=== PATIENT | male | born 1970 | race Two or more races ===

== ENCOUNTER 2019-01-15 10:22 | Inpatient (IN) | payer SELFPAY ==
[~2019-01-15] VITALS: Ht 162.6 cm; Wt 68.0 kg
[2019-01-15 10:33] VITALS: BP 124/79
--- NOTE | 2019-01-15 10:43 | NUR ---
ED Nurse Note: PT WALKED IN DUE TO GENITAL PAIN SINCE LAST NIGHT. PT ALSO C/O THAT HE FEELS MUSIC ALL OVER HIS BODY AND THAT THERE WAS A SPIRIT IN HIS ROOM LAST NIGHT. [facility] X4, AMBULATORY WITH UNLABORED BREATHING. Addendum: 01/15/19 at 1106 by YURI ED Nurse Note: PT WALKED IN DUE TO GENITAL PAIN SINCE LAST NIGHT. PT ALSO C/O THAT HE FEELS MUSIC ALL OVER HIS BODY AND THAT THERE WAS A SPIRIT IN HIS ROOM LAST NIGHT. [facility] X4, AMBULATORY WITH UNLABORED BREATHING.
[2019-01-15] MEDS ORDERED: NKM (10:45)
[2019-01-15] MEDS ORDERED: ZyPREXA Zydis 10mg tab ORAL ONE (11:15)
--- NOTE | 2019-01-15 11:38 | Emergency Room Report ---
History of Present Illness General Chief Complaint: Male Urogenital Problems Source: Patient, Friend Present Illness HPI This patient is altered. The patient is confabulating and hallucinating. He is speaking normal words but not in a sensible order. He is unable to make a complete sentence. He has no specific complaint. He is brought in by his friend who states that he had went to [place] and came home yesterday and called him and had been acting this way ever since. He has no history of drug abuse or a psychiatric condition. The friend of the patient states he is hallucinating and is not making sense. There is been no recent illness. He is unsure if he used drugs in [place]. He did not accompany him. He states normally he has a normal mental status. Allergies: Uncoded Allergies: PENICILLIN (Allergy, Unknown, 01/15/19) Patient History Past Medical History: unable to obtain Past Surgical History: unable to obtain Pertinent Family History: unable to obtain Reviewed Nursing Documentation: PMH: Agreed; PSxH: Agreed Nursing Documentation-PMH Past Medical History: No Stated History Review of Systems All Other Systems: limited Physical Exam Vital Signs Date Time Temp Pulse Resp B/P (MAP) Pulse Ox O2 Delivery O2 Flow Rate FiO2 01/15/19 10:33 98.4 118 20 124/79 (94) 96 Room Air Sp02 EP Interpretation: reviewed, normal General Appearance: no apparent distress, alert, GCS 15, non-toxic Head: normocephalic, atraumatic Eyes: bilateral eye normal inspection, bilateral eye PERRL ENT: hearing grossly normal, normal pharynx, no angioedema, normal voice Neck: full range of motion, supple/symm/no masses Respiratory: chest non-tender, lungs clear, normal breath sounds, no respiratory distress, no retraction, no accessory muscle use, speaking full sentences Cardiovascular #1: regular rate, rhythm, no edema Gastrointestinal: normal bowel sounds, non tender, soft, non-distended, no guarding, no rebound Rectal: deferred Musculoskeletal: back normal, gait/station normal, normal range of motion Neurologic: alert, responsive, motor strength/tone normal, sensory intact, speech normal, grossly normal Psychiatric: mood/affect normal, no suicidal/homicidal ideation, other - Psychosis, non-sensical. Skin: normal color, no rash, warm/dry, well hydrated Medical Decision Making Diagnostic Impression: Primary Impression: Hepatic encephalopathy Additional Impressions: Hypokalemia Wernicke encephalopathy ER Course I suspect this patient has liver cirrhosis and possibly Warnicke encephalopathy. I suspect he is altered secondary to an elevated ammonia and has hepatic encephalopathy. Labs did show hypokalemia and an elevated ammonia. CT of the head was unremarkable. This patient will be admitted for further evaluation of his altered mental status/encephalopathy. Laboratory Tests Test 01/15/19 11:15 01/15/19 11:47 White Blood Count 9.8 K/UL (4.8-10.8) Red Blood Count 4.73 M/UL (4.70-6.10) Hemoglobin 14.9 G/DL (14.2-18.0) Hematocrit 42.0 % (42.0-52.0) Mean Corpuscular Volume 89 FL (80-99) Mean Corpuscular Hemoglobin 31.4 PG (27.0-31.0) H Mean Corpuscular Hemoglobin Concent 35.4 G/DL (32.0-36.0) Red Cell Distribution Width 11.5 % (11.6-14.8) L Platelet Count 332 K/UL (150-450) Mean Platelet Volume 6.0 FL (6.5-10.1) L Neutrophils (%) (Auto) 63.7 % (45.0-75.0) Lymphocytes (%) (Auto) 24.0 % (20.0-45.0) Monocytes (%) (Auto) 10.9 % (1.0-10.0) H Eosinophils (%) (Auto) 0.4 % (0.0-3.0) Basophils (%) (Auto) 0.9 % (0.0-2.0) Urine Color Yellow Urine Appearance Clear Urine pH 6.5 (4.5-8.0) Urine Specific [place] 1.010 (1.005-1.035) Urine Protein 2+ (NEGATIVE) H Urine Glucose (UA) Negative (NEGATIVE) Urine Ketones 1+ (NEGATIVE) H Urine Blood 1+ (NEGATIVE) H Urine Nitrite Negative (NEGATIVE) Urine Bilirubin 1+ (NEGATIVE) H Urine Ictotest Negative (NEGATIVE) Urine Urobilinogen 4 MG/DL (0.0-1.0) H Urine Leukocyte Esterase 1+ (NEGATIVE) H Urine RBC 0-2 /HPF (0 - 0) H Urine WBC 0-2 /HPF (0 - 0) Urine Squamous Epithelial Cells Occasional /LPF Urine Amorphous Sediment Few /LPF (NONE) H Urine Bacteria Occasional /HPF (NONE) Urine Mucus Few /LPF (NONE/OCC) H Sodium Level 133 MMOL/L (136-145) L Potassium Level 2.9 MMOL/L (3.5-5.1) L Chloride Level 94 MMOL/L (98-107) L Carbon Dioxide Level 28 MMOL/L (21-32) Anion Gap 11 mmol/L (5-15) Blood Urea Nitrogen 21 mg/dL (7-18) H Creatinine 0.8 MG/DL (0.55-1.30) Estimate Glomerular Filtration Rate > 60 mL/min (>60) Glucose Level 139 MG/DL (74-106) H Calcium Level 9.4 MG/DL (8.5-10.1) Total Bilirubin 0.9 MG/DL (0.2-1.0) Aspartate Amino Transferase (AST) 165 U/L (15-37) H Alanine Aminotransferase (ALT) 216 U/L (12-78) H Alkaline Phosphatase 88 U/L (46-116) Total Protein 8.2 G/DL (6.4-8.2) Albumin 4.0 G/DL (3.4-5.0) Globulin 4.2 g/dL Albumin/Globulin Ratio 1.0 (1.0-2.7) Thyroid Stimulating Hormone (TSH) 3.612 uiU/mL (0.358-3.740) Salicylates Level < 0.2 ug/mL (2.8-20) L Urine Opiates Screen Negative (NEGATIVE) Acetaminophen Level < 2 MCG/ML (10-30) L Urine Barbiturates Screen Negative (NEGATIVE) Phencyclidine (PCP) Screen Negative (NEGATIVE) Urine Amphetamines Screen Negative (NEGATIVE) Urine Benzodiazepines Screen Negative (NEGATIVE) Urine Cocaine Screen Negative (NEGATIVE) Urine Marijuana (THC) Screen Negative (NEGATIVE) Serum Alcohol < 3 mg/dL Ammonia 38 umol/L (11-32) H EKG Diagnostic Results Rate: tachycardiac Rhythm: other - S.tachycardia ST Segments: no acute changes Other Impression Qwave lead III. Rhythm Strip Diag. 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
[2019-01-15 12:07] LABS: APPEARANCE,URINE CLEAR; BILIRUBIN, URINE 1+ (NEGATIVE); GLUCOSE, URINE (UA) NEGATIVE (NEGATIVE); KETONES,URINE 1+ (NEGATIVE); LEUKOCYTE ESTERASE ,URINE 1+ (NEGATIVE); NITRITE,URINE NEGATIVE (NEGATIVE); PH,URINE 6.5 (4.5-8.0); PROTEIN,URINE 2+ (NEGATIVE); UROBILINOGEN,URINE 4 MG/DL (0.0-1.0)
[2019-01-15 12:08] LABS: BASOPHILS % (AUTO) 0.9 % (0.0-2.0); EOSINOPHILS % (AUTO) 0.4 % (0.0-3.0); HEMOGLOBIN 14.9 G/DL (14.2-18.0); MEAN CORPUSCULAR VOLUME 89 FL (80-99); MONOCYTES % (AUTO) 10.9 % (1.0-10.0); NEUTROPHILS % (AUTO) 63.7 % (45.0-75.0); PLATELET COUNT 332 K/UL (150-450); RED BLOOD COUNT 4.73 M/UL (4.70-6.10); RED CELL DISTRIBUTION WIDTH 11.5 % (11.6-14.8); WHITE BLOOD COUNT 9.8 K/UL (4.8-10.8)
[2019-01-15 12:09] LABS: ANION GAP 11 mmol/L (5-15); BLOOD UREA NITROGEN 21 mg/dL (7-18); CALCIUM 9.4 MG/DL (8.5-10.1); CARBON DIOXIDE 28 MMOL/L (21-32); CHLORIDE 94 MMOL/L (98-107); CREATININE 0.8 MG/DL (0.55-1.30); POTASSIUM 2.9 MMOL/L (3.5-5.1); SODIUM 133 MMOL/L (136-145)
[2019-01-15 12:14] LABS: COLOR,URINE YELLOW
[2019-01-15 12:21] LABS: ALANINE AMINOTRANSFERASE 216 U/L (12-78); ALKALINE PHOSPHATASE 88 U/L (46-116); ASPARTATE AMINO TRANSFERASE 165 U/L (15-37); BILIRUBIN,TOTAL 0.9 MG/DL (0.2-1.0)
[2019-01-15 12:35] VITALS: BP 135/76
--- NOTE | 2019-01-15 13:37 | Diagnostic Imaging Report ---
Indications: Altered mental status Technique: Spiral acquisitions obtained through the brain. Angled axial and coronal 5 x 5 mm slices were reconstructed. Total dose length product 1375.61 mGycm. CTDI vol(s) 70.38 mGy. Dose reduction achieved using automated exposure control Comparison: None. Findings: There is a parenchymal calcification in the right posterior temporal lobe. No acute intracranial hemorrhage nor edema. No mass effect nor midline shift. Normal pizano-white differentiation. Normal-sized ventricles and extra axial CSF spaces. There is evidence of prior mastoid surgery on the left. There is some mastoid opacification on the left. The orbits are unremarkable. The sinuses are clear. 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
--- NOTE | 2019-01-15 14:36 | NUR ---
ED Nurse Note: PT IS STILL HALLUCINATING AND STATES THAT HE IS SEEING THE THINGS THAT MAKE MUSIC. FRIEND AT THE BED SIDE.
[2019-01-15 14:40] VITALS: BP 128/80
[2019-01-15] MEDS ORDERED: Lactulose 20gm/30ml UDC ORAL ONE (14:45)
[2019-01-15] MEDS ORDERED: Thiamine HCl 500 MG in D5W 55 ML IVPB ONE (15:15)
--- NOTE | 2019-01-15 15:20 | NUR ---
ED Nurse Note: CALLED PHARMACY TO RESTOCK THIAMINE.
--- NOTE | 2019-01-15 15:20 | NUR ---
ED Nurse Note: DR COLLETTE KU FOR PT TO EAT/DRINK. RAMY PROVIDED SANDWICH AND WATER.
--- NOTE | 2019-01-15 16:17 | NUR ---
ED Nurse Note: REPORT GIVEN TO CIERA PANDA OF MED SURG UNIT.
--- NOTE | 2019-01-15 16:18 | NUR ---
ED Nurse Note: CIERA PANDA FROM MED SURG SAID TO COME UP AFTER 30MINS.
[2019-01-15 16:27] VITALS: BP 117/83
--- NOTE | 2019-01-15 16:30 | NUR ---
NURSE NOTES: PATIENT RECEIVED FROM ER DEPT. VIA . FAMILY FRIEND AND ANCILLARY WORKER AT BEDSIDE. PATIENT ABLE TO TRANSFER SELF TO BED. ORIENTED TO ROOM. CALL LIGHT WITHIN REACH.BED IN LOWEST AND LOCKED POSITION. PLACED CALL TO BASILIO TO GET ADMITTING ORDERS. LEFT MESSAGE WITH PHONE EXCHANGE. AWAITING RETURN CALL.
--- NOTE | 2019-01-15 16:32 | NUR ---
ED Nurse Note: PT TRANSFERRED TO MED SURG UNTI VIA WHEELCHAIR WITH DENSITY CONTROL PUNCHER. VSS. ALL BEONGINGS SENT.
--- NOTE | 2019-01-15 18:51 | NUR ---
CHARGE NURSE NOTES: Left message to Dr Coy reg the admission orders
--- NOTE | 2019-01-15 19:30 | NUR ---
HAND-OFF: Report given to ONI COLEMAN RN.
--- NOTE | 2019-01-15 19:31 | NUR ---
NURSE NOTES: Received report & pt from AMARILYS Webb. Pt lying in bed, a&ox4, [place] speaking only, in room air. No s/s of acute distress & no c/o pain at this time. IV site intact & S/L'd. No admission orderes yet, AM shift already called Dr. Coy & left msg. Will call Dr. Coy to f/u with admission orders again. Per AM shift, pt tachycardic ranging from 118-130s. Bed in lowest position, call light within reach. Will continue to monitor.
[2019-01-15 20:00] VITALS: BP 108/74
--- NOTE | 2019-01-15 20:00 | NUR ---
NURSE NOTES: Called & let msg to Dr. Coy to f/u with admission orders. Also informed MD that current HR is 114.
--- NOTE | 2019-01-15 20:55 | NUR ---
NURSE NOTES: Dr. Coy called back & gave admission orders. Orders noted & carried out.
[2019-01-16] VITALS: BP 114/70
[2019-01-16 04:00] VITALS: BP 114/75
--- NOTE | 2019-01-16 07:32 | NUR ---
HAND-OFF: Report given to AMARILYS Pineda. Pt in stable condition. Rounds done.
--- NOTE | 2019-01-16 07:32 | NUR ---
NURSE NOTES:BEDSIDE ROUNDS WITH ONI RN.PATIENT SITTING AT THE SIDE OF THE BED EATING BREAKFAST,A/O X2,ROOM AIR,EXTREMITIES MOBILE,NO C/O PAIN.
[2019-01-16 08:00] VITALS: BP_SYST 107; BP_SYST 90; BP_DIAS 63; BP_DIAS 65
[2019-01-16 12:00] VITALS: BP 105/70
--- NOTE | 2019-01-16 13:40 | NUR ---
NURSE NOTES: Report received from Miriam RN, rounds made. Patient resting in supine position in bed. Alert, oriented x2. Denies SOB on RA, no pain, no NV. RAC heplock intact, site asymptomatic. Family at bedside. Call light in reach, bed in lowest position, will continue to monitor.
--- NOTE | 2019-01-16 13:53 | NUR ---
HAND-OFF: Report given to DANIELA PANDA.RE:CONTINUITY OF CARE.PATIENT STABLE ON REPORT.
--- NOTE | 2019-01-16 15:43 | NUR ---
CASE MANAGEMENT: INITIAL REVIEW 48 YO M PRESENTED TO OUR ED FROM HOME CC: MALE UROGENITAL PROBLEMS PMHx: NONE STATED SI:HEPATIC ENCEPHALOPATHY. T 98.4 HR 118 RR 20 B/P 124/79 SATS 96% ON RA NA 133 K 2.9 CL 94 BUN 21 GLU 139 AST 165 ALT 216 AMMONIA 38 IS: ZYPREXA PO X1 LACTULOSE PO X1 CT HEAD (-) PATIENT ADMITTED TO MED/SURG 01/15/2019 @ 1500 DCP: PATIENT TO BE DISCHARGED TO HOME ONCE MEDICALLY CLEARED. Addendum: 01/16/19 at 1804 by Deana Dunbar CM INTERQUAL
[2019-01-16 16:00] VITALS: BP 106/76
[2019-01-16] MEDS ORDERED: LACTULOSE20 GM/301 ORAL (17:16)
--- NOTE | 2019-01-16 18:35 | NUR ---
NURSE NOTES: Discharge instructions and prescription x1 reviewed with patient, verbalized understanding. RAC IV discontinued, no active bleeding. All belongings, discharge instructions and prescription given to patient. Patient ambulated down to lobby with family in stable condition. Discharged home at 1835.
--- NOTE | 2019-01-16 19:38 | Cardiology Report ---
APPROVED REPORT EKG Measurement Heart [id number] MA 124P0 [id number] Sinus tachycardia Inferior infarct, age undetermined Abnormal ECG
--- NOTE | 2019-01-16 22:01 | History and Physical Report ---
DATE OF ADMISSION: 01/15/2019 HISTORY OF PRESENT ILLNESS: This is a 48-year-old male who came to the emergency room for altered mental status, weakness, hepatic encephalopathy. PAST MEDICAL HISTORY: Alcohol abuse. ALLERGIES: NKA. MEDICATIONS: See the list. PHYSICAL EXAMINATION: GENERAL: This is a young male who is currently confused. VITAL SIGNS: Blood pressure 106/76, pulse 111, temperature 98.3. HEENT: NAD. CHEST: Bilaterally clear. CARDIOVASCULAR: Regular rhythm. No gallop. No murmur. ABDOMEN: Soft. EXTREMITIES: CCE. NEUROLOGICAL: The patient is lying in the bed, generalized weakness. LABORATORY AND DIAGNOSTIC DATA: White count 9.8, hemoglobin 15, hematocrit 42. Chemistry panel, ammonia level was 38. Sodium 133, potassium 2.9, BUN 21, creatinine 0.8, glucose, AST, and ALT is high. TSH 3.612. His urine 1+ ketones, 1+ blood. Toxicology report is showing as negative. ASSESSMENT: 1. Hepatic encephalopathy. 2. Generalized weakness. 3. Hypokalemia. PLAN: 1. We will admit on medical floor. 2. . 3. I will discontinue Tylenol, continue banana bag. 4. Consider GI consult. Jamey Coy M.D. DR: Fidencio JOB#: [id number] CC:
--- NOTE | 2019-01-20 11:28 | Discharge Summary ---
Discharge Summary Discharge Summary _ DATE OF ADMISSION: 01/15/2019 DATE OF DISCHARGE: 01/16/2019 DISCHARGED BY: Dr. Coy REASON FOR ADMISSION: 48 years old male presented to emergency room with altered mental status Upon evaluation patient was slightly tachycardic. Laboratory work-up revealed no leukocytosis, stable hemoglobin and hematocrit. Potassium 2.9. Glucose 139. AST 165. ALT 216. TSH within normal limits. Urine toxicology screen was negative. Serum salicylates and alcohol levels negative. Ammonia- 38. EKG revealed sinus tachycardia, no acute ischemic changes. CT of the head revealed no evidence of acute intracranial bleeding or mass- effect. Right posterior temporal parenchymal calcification consistent with cysticercosis. Patient was diagnosed with hepatic encephalopathy, hypokalemia, and admitted for further management. HOSPITAL COURSE: Patient admitted to medical surgical floor. Patient started on the IV fluids with thiamine and folic acid. Potassium was replaced. Lactulose given. GI prophylaxis provided. Tylenol stopped due to elevated LFT. Mental status improved. Patient was cleared for discharge home. Outpatient follow-up with primary care provider Due to rapid and unexpected improvement patient condition, patient was discharged in 1 day. FINAL DIAGNOSES: Hepatic encephalopathy Generalized weakness Hypokalemia DISCHARGE MEDICATIONS: See Medication Reconciliation list. DISCHARGE INSTRUCTIONS: Patient was discharged home. Follow up with primary care provider in one week. I have been assigned to dictate discharge summary for this account. I was not involved in the patient's management. Malka Quezada NP Jan 20, 2019 11:28
== END 2019-01-16 18:40 | disposition home or self-care (01) | DRG 443 ==
LOC: EMR 11:05 → 3E 15:00 → EDBEDREQ 15:56
DX: K72.90 Hepatic failure, unspecified without coma (principal); R53.1 Weakness; E87.6 Hypokalemia; Z88.0 Allergy status to penicillin
CPT/HCPCS: 36415; 70450; 80053; 80307; 80329; 81003; 82140; 84443; 85025; 93005; 96365; 99285; J8499

== ENCOUNTER 2020-01-08 17:16 | Inpatient (IN) | payer MEDICAID ==
[~2020-01-08] VITALS: Ht 172.7 cm; Wt 77.1 kg
[~2020-01-08 17:16] MED LIST: LACTULOSE20 GM/301 ORAL; NKM
--- NOTE | 2020-01-08 17:21 | Emergency Room Report ---
History of Present Illness General Chief Complaint: Alcohol Intoxication Source: Patient, EMS Present Illness HPI Is a 49-year-old male past medical history of alcohol abuse who is brought in by EMS for alcohol abuse. Patient's family called EMS because patient has been drinking daily and they are concerned about his nutritional status because he drinks more than he eats. Patient admits to drinking 12 beers a day as well as drinking tequila. He states his last drink was earlier this morning where he drank some tequila. He feels anxious and has palpitations. He states that he feels a little shaky. He denies any seizure-like activity. Patient also states that he fell yesterday. He states that he fell because he was drinking and hit his head. Patient denies any chest pain or shortness of breath. He denies any focal weakness. Allergies: Coded Allergies: PENICILLINS (Unverified Allergy, Unknown, 01/08/20) Uncoded Allergies: PENICILLIN (Allergy, Unknown, 01/15/19) COVID-19 Screening Contact w/high risk pt: No Recent Travel to affected area: No Experienced COVID-19 symptoms?: No COVID-19 Testing performed MANAGER BIOSTATISTICS: No Patient History Social History: Reports: alcohol use; Denies: smoking, drug use Reviewed Nursing Documentation: PMH: Agreed; PSxH: Agreed Nursing Documentation-PMH Past Medical History: No Stated History Review of Systems All Other Systems: negative except mentioned in HPI Physical Exam Vital Signs Date Time Temp Pulse Resp B/P (MAP) Pulse Ox O2 Delivery O2 Flow Rate FiO2 01/08/20 17:13 98.1 120 20 127/73 (91) 99 Room Air Sp02 EP Interpretation: reviewed, normal General Appearance: no apparent distress, alert, GCS 15, non-toxic Head: normocephalic, atraumatic Eyes: bilateral eye normal inspection, bilateral eye PERRL ENT: hearing grossly normal, normal pharynx, no angioedema, normal voice, dry mucus membranes Neck: full range of motion, supple/symm/no masses Respiratory: chest non-tender, lungs clear, normal breath sounds, speaking full sentences Cardiovascular #1: tachycardia Cardiovascular #2: 2+ carotid (R), 2+ carotid (L) Gastrointestinal: normal bowel sounds, non tender, soft, non-distended, no guarding, no rebound Rectal: deferred Genitourinary: no CVA tenderness Musculoskeletal: normal inspection, normal range of motion Neurologic: camera storage clerk III-XII nml as tested, oriented x3, other - faint tremors Psychiatric: no suicidal/homicidal ideation Skin: no rash Lymphatic: no adenopathy Medical Decision Making Diagnostic Impression: Primary Impression: Alcoholic ketoacidosis Additional Impressions: Hypokalemia Alcohol withdrawal ER Course Patient presents with alcohol withdrawal. He is tachycardic and hypertensive he is not altered. No evidence for DTs. Patient given IV fluids, banana bag and 2 doses of IV Ativan. His heart rate is improving currently at 6:46 PM his heart rate is 105 bpm. Patient also found to be hypokalemic with a potassium of 3.0. I have ordered for 10 mEq of IV potassium as well as 40 mEq of oral potassium chloride. Patient has anion gap of 18 and CO2 of 20. Alcoholic ketoacidosis. Patient to be admitted for further treatment and evaluation. Laboratory Tests Test 01/08/20 17:20 01/08/20 18:29 White Blood Count 6.9 K/UL (4.8-10.8) Red Blood Count 5.34 M/UL (4.70-6.10) Hemoglobin 16.8 G/DL (14.2-18.0) Hematocrit 51.3 % (42.0-52.0) Mean Corpuscular Volume 96 FL (80-99) Mean Corpuscular Hemoglobin 31.5 PG (27.0-31.0) H Mean Corpuscular Hemoglobin Concent 32.9 G/DL (32.0-36.0) Red Cell Distribution Width 13.3 % (11.6-14.8) Platelet Count 510 K/UL (150-450) H Mean Platelet Volume 5.7 FL (6.5-10.1) L Neutrophils (%) (Auto) 49.4 % (45.0-75.0) Lymphocytes (%) (Auto) 41.6 % (20.0-45.0) Monocytes (%) (Auto) 5.5 % (1.0-10.0) Eosinophils (%) (Auto) 2.4 % (0.0-3.0) Basophils (%) (Auto) 1.2 % (0.0-2.0) Prothrombin Time 10.7 SEC (9.30-11.50) Prothrombin Time INR 1.0 (0.9-1.1) Activated Partial Thromboplast Time 27 SEC (23-33) Sodium Level 140 MMOL/L (136-145) Potassium Level 3.0 MMOL/L (3.5-5.1) L Chloride Level 102 MMOL/L (98-107) Carbon Dioxide Level 20 MMOL/L (21-32) L Anion Gap 18 mmol/L (5-15) H Blood Urea Nitrogen 6 mg/dL (7-18) L Creatinine 0.9 MG/DL (0.55-1.30) Estimated Glomerular Filtration Rate > 60 mL/min (>60) Glucose Level 131 MG/DL (74-106) H Calcium Level 8.1 MG/DL (8.5-10.1) L Magnesium Level 2.0 MG/DL (1.8-2.4) Total Bilirubin 0.2 MG/DL (0.2-1.0) Aspartate Amino Transferase (AST) 38 U/L (15-37) H Alanine Aminotransferase (ALT) 56 U/L (12-78) Alkaline Phosphatase 61 U/L (46-116) Troponin I 0.002 ng/mL (0.000-0.056) Total Protein 8.0 G/DL (6.4-8.2) Albumin 3.5 G/DL (3.4-5.0) Globulin 4.5 g/dL Albumin/Globulin Ratio 0.8 (1.0-2.7) L Lipase 138 U/L (73-393) Venous Blood pH Pending Venous Blood Partial Pressure CO2 Pending Venous Blood Partial Pressure O2 Pending Venous Blood HCO3 Pending Venous Blood Total Carbon Dioxide Pending Venous Blood Base Excess Pending Venous Blood Carboxyhemoglobin Pending Methemoglobin Pending EKG Diagnostic Results EKG Time: 18:15 EP Interpretation: Sara Carbajal MD Rate: tachycardiac Rhythm: other - sinus tachycardia ST Segments: no acute changes ASA given to the pt in ED: No Rhythm Strip Diag. Results Rhythm Strip Time: 18:15 EP Interpretation: yes - MD Raven Rate: 111 Rhythm: no PVC's, no ectopy, other - sinus tachycardia Other X-Ray Diagnostic Results Other X-Ray Diagnostic Results : X-Ray ordered: x-ray abdomen # of Views/Limited Vs Complete: 2 View Indication: Other - alcohol abuse EP Interpretation: Yes Interpretation: no soft tissue swelling, nonspecific bowel gas, no sbo Impression: No acute disease Electronically Signed by: Sara Carbajal MD Last Vital Signs Date Time Temp Pulse Resp B/P (MAP) Pulse Ox O2 Delivery O2 Flow Rate FiO2 01/08/20 17:13 98.1 120 20 127/73 (91) 99 Room Air Disposition: ADMITTED INPATIENT Condition: Critical - telemetry Physician Consult: Sara Kaplan M.D. Jan 08, 2020 17:21
[2020-01-08] MEDS ORDERED: LORazepam Inj 2mg/ml 1ml IV ONE ×2 (17:30→18:30)
[2020-01-08] MEDS ORDERED: Folic Acid 1 MG, Magnesium Sulfate 2,000 MG, Multivitamin - 12 Injection 10 ML, Thiamin... IV ONE ×5 (17:30)
[2020-01-08 17:35] VITALS: BP 124/74
--- NOTE | 2020-01-08 17:35 | NUR ---
ED Nurse Note: Pt brought in by ambulance from home d/t ETOH use and feeling anxious. Per pt, he drank a bottle of tequila this morning. Respirations even and unlabored on room air. Vitals stable as documented. A+Ox4, calm and cooperative.
--- NOTE | 2020-01-08 17:40 | NUR ---
ED Nurse Note: pt in radiology
[2020-01-08 17:50] LABS: BASOPHILS % (AUTO) 1.2 % (0.0-2.0); EOSINOPHILS % (AUTO) 2.4 % (0.0-3.0); HEMATOCRIT 51.3 % (42.0-52.0); HEMOGLOBIN 16.8 G/DL (14.2-18.0); LYMPHOCYTES % (AUTO) 41.6 % (20.0-45.0); MEAN CORPUSCULAR VOLUME 96 FL (80-99); MONOCYTES % (AUTO) 5.5 % (1.0-10.0); NEUTROPHILS % (AUTO) 49.4 % (45.0-75.0); PLATELET COUNT 510 K/UL (150-450); RED BLOOD COUNT 5.34 M/UL (4.70-6.10); RED CELL DISTRIBUTION WIDTH 13.3 % (11.6-14.8); WHITE BLOOD COUNT 6.9 K/UL (4.8-10.8)
[2020-01-08 18:00] LABS: ANION GAP 18 mmol/L (5-15); BLOOD UREA NITROGEN 6 mg/dL (7-18); CALCIUM 8.1 MG/DL (8.5-10.1); CARBON DIOXIDE 20 MMOL/L (21-32); CHLORIDE 102 MMOL/L (98-107); CREATININE 0.9 MG/DL (0.55-1.30); SODIUM 140 MMOL/L (136-145)
[2020-01-08] MEDS ORDERED: Folic Acid 1 MG, Magnesium Sulfate 2,000 MG, Multivitamin - 12 Injection 10 ML in Sodiu... IV ONE (18:00)
[2020-01-08] MEDS ORDERED: Thiamine 100mg in D5W 55ml IVPB ONE (18:00)
[2020-01-08 18:04] LABS: ALANINE AMINOTRANSFERASE 56 U/L (12-78); ALBUMIN 3.5 G/DL (3.4-5.0); ALBUMIN/GLOBULIN RATIO 0.8 (1.0-2.7); ALKALINE PHOSPHATASE 61 U/L (46-116); ASPARTATE AMINO TRANSFERASE 38 U/L (15-37); BILIRUBIN,TOTAL 0.2 MG/DL (0.2-1.0)
--- NOTE | 2020-01-08 18:07 | NUR ---
ED Nurse Note: pt back from radiology and on the monitor. ST @ 112
--- NOTE | 2020-01-08 19:06 | NUR ---
HAND-OFF: Report given to AMARILYS Green. Pt in stable condition, plan of care endorsed.
[2020-01-08 19:12] VITALS: BP 110/77
--- NOTE | 2020-01-08 19:12 | NUR ---
ED Nurse Note: Received report from AMARILYS Jansen. Patient sleeping in bed, no acute distress noted.
--- NOTE | 2020-01-08 19:26 | NUR ---
ED Nurse Note: Xray at bedside
--- NOTE | 2020-01-08 20:13 | Diagnostic Imaging Report ---
EXAM: XR Chest, 1 View CLINICAL HISTORY: PAIN TECHNIQUE: Frontal view of the chest. COMPARISON: No relevant prior studies available. FINDINGS: Lungs: Atelectasis versus airspace opacity in the right infrahilar region. Pleural space: No pleural effusion. No pneumothorax. Heart: Unremarkable. No cardiomegaly. Bones/joints: Unremarkable. IMPRESSION: Atelectasis versus airspace opacity in the right infrahilar region.
[2020-01-08 20:23] LABS: APPEARANCE,URINE CLEAR; BILIRUBIN, URINE NEGATIVE (NEGATIVE); COLOR,URINE PALE YELLOW; GLUCOSE, URINE (UA) NEGATIVE (NEGATIVE); KETONES,URINE NEGATIVE (NEGATIVE); LEUKOCYTE ESTERASE ,URINE NEGATIVE (NEGATIVE); NITRITE,URINE NEGATIVE (NEGATIVE); PH,URINE 5 (4.5-8.0); PROTEIN,URINE NEGATIVE (NEGATIVE); UROBILINOGEN,URINE NORMAL MG/DL (0.0-1.0)
--- NOTE | 2020-01-08 20:24 | NUR ---
ED Nurse Note: Report given to AMARILYS Garcia.
--- NOTE | 2020-01-08 20:42 | History & Physical ---
History and Physical History & Physicial History and Physical HPI Patient is a 49-year-old man with past medical history of alcohol abuse admitted for with possible alcohol withdrawal, family concern about amount he is drinking. He admits to drinking 12 beers a day as well as drinking tequila. He states his last drink was earlier this morning where he drank some tequila. He feels anxious and has palpitations. He states that he feels a little shaky. He denies any seizure-like activity. Patient also states that he fell yesterday. He states that he fell because he was drinking and hit his head. Patient denies any chest pain or shortness of breath. He denies any focal weakness. Allergies: Coded Allergies: PENICILLINS (Unverified Allergy, Unknown, 01/08/20) Uncoded Allergies: PENICILLIN (Allergy, Unknown, 01/15/19) Social History: Reports: alcohol use; Denies: smoking, drug use FH:NC Past Medical History: No Stated History All Other Systems: negative except mentioned in HPI Physical Exam Vital Signs Noted Date Time Temp Pulse Resp B/P (MAP) Pulse Ox O2 Delivery O2 Flow Rate FiO2 01/08/20 17:13 98.1 120 20 127/73 (91) 99 Room Air General Appearance: no apparent distress, alert, GCS 15, non-toxic Head: normocephalic, atraumatic Eyes: bilateral eye normal inspection, bilateral eye PERRL ENT: hearing grossly normal, normal pharynx, normal voice, dry mucus membranes Neck: full range of motion, supple/symm/no masses/no LN Respiratory: chest non-tender, lungs clear, normal breath sounds, speaking full sentences Cardiovascular: tachycardia, HS1, HS2 normal, RRR Gastrointestinal: normal bowel sounds, non tender, soft, non-distended, no guarding, no rebound, no CVA tenderness Musculoskeletal: normal inspection, normal range of motion 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 nml as tested, oriented x3, other - faint tremors Skin: no rash Impression: Alcoholic withdrawal,ketoacidosis Hypokalemia Possible Pneumonia Plan IV Antibiotics Thiamine IV fluids, banana bag PRN Ativan Monitor labs PPX O2 PRN Laboratory Tests Test 01/08/20 17:20 01/08/20 18:29 White Blood Count 6.9 K/UL (4.8-10.8) Red Blood Count 5.34 M/UL (4.70-6.10) Hemoglobin 16.8 G/DL (14.2-18.0) Hematocrit 51.3 % (42.0-52.0) Mean Corpuscular Volume 96 FL (80-99) Mean Corpuscular Hemoglobin 31.5 PG (27.0-31.0) H Mean Corpuscular Hemoglobin Concent 32.9 G/DL (32.0-36.0) Red Cell Distribution Width 13.3 % (11.6-14.8) Platelet Count 510 K/UL (150-450) H Mean Platelet Volume 5.7 FL (6.5-10.1) L Neutrophils (%) (Auto) 49.4 % (45.0-75.0) Lymphocytes (%) (Auto) 41.6 % (20.0-45.0) Monocytes (%) (Auto) 5.5 % (1.0-10.0) Eosinophils (%) (Auto) 2.4 % (0.0-3.0) Basophils (%) (Auto) 1.2 % (0.0-2.0) Prothrombin Time 10.7 SEC (9.30-11.50) Prothrombin Time INR 1.0 (0.9-1.1) Activated Partial Thromboplast Time 27 SEC (23-33) Sodium Level 140 MMOL/L (136-145) Potassium Level 3.0 MMOL/L (3.5-5.1) L Chloride Level 102 MMOL/L (98-107) Carbon Dioxide Level 20 MMOL/L (21-32) L Anion Gap 18 mmol/L (5-15) H Blood Urea Nitrogen 6 mg/dL (7-18) L Creatinine 0.9 MG/DL (0.55-1.30) Estimated Glomerular Filtration Rate > 60 mL/min (>60) Glucose Level 131 MG/DL (74-106) H Calcium Level 8.1 MG/DL (8.5-10.1) L Magnesium Level 2.0 MG/DL (1.8-2.4) Total Bilirubin 0.2 MG/DL (0.2-1.0) Aspartate Amino Transferase (AST) 38 U/L (15-37) H Alanine Aminotransferase (ALT) 56 U/L (12-78) Alkaline Phosphatase 61 U/L (46-116) Troponin I 0.002 ng/mL (0.000-0.056) Total Protein 8.0 G/DL (6.4-8.2) Albumin 3.5 G/DL (3.4-5.0) Globulin 4.5 g/dL Albumin/Globulin Ratio 0.8 (1.0-2.7) L Lipase 138 U/L (73-393) Venous Blood pH Pending Venous Blood Partial Pressure CO2 Pending Venous Blood Partial Pressure O2 Pending Venous Blood HCO3 Pending Venous Blood Total Carbon Dioxide Pending Venous Blood Base Excess Pending Venous Blood Carboxyhemoglobin Pending Methemoglobin Pending EKG: sinus tachycardiac, no acute changes Rhythm: no PVC's, no ectopy, other - sinus tachycardia AXR: no soft tissue swelling, nonspecific bowel gas, no sbo Impression: No acute disease CXR: R Infrahilar atelectasis vs opacity Koffi Smith MD Jan 08, 2020 20:42
--- NOTE | 2020-01-08 20:45 | NUR ---
TRANSFER TO FLOOR: Patient transferred to telemetry as ordered, per ERMD. Report given to AMARILYS Garcia. Patient transported via gurney on ACLS protocol with color television console monitor accompanied by 1 RN and rehabilitation technician in stable condition.
--- NOTE | 2020-01-08 21:15 | NUR ---
NURSE NOTES: Received report from NERI Ambrose RN. Pt is in stable condition, denies pain. Will start plan of care and close monitoring.
[2020-01-08 21:30] VITALS: BP 128/92
[2020-01-08] MEDS ORDERED: Acetaminophen 500mg (ES) tab ORAL PRN (22:00)
[2020-01-08] MEDS ORDERED: LORazepam Inj 2mg/ml 1ml IV PRN (22:00)
[2020-01-09] VITALS: BP 125/84
--- NOTE | 2020-01-09 00:13 | Diagnostic Imaging Report ---
EXAM: CT Head Without Intravenous Contrast CLINICAL HISTORY: AMS TECHNIQUE: Axial computed tomography images of the head/brain without intravenous contrast. CTDI is 53 mGy and DLP is 939 mGy-cm. One or more of the following dose reduction techniques were used: automated exposure control, adjustment of the mA and/or kV according to patient size, use of iterative reconstruction technique. COMPARISON: 01/15/2019 FINDINGS: Brain: No hemorrhage, extra-axial fluid collection, mass effect, or edema. Ventricles: Unremarkable. Bones/joints: Unremarkable. Soft tissues: Unremarkable. Sinuses: Unremarkable as visualized. Mastoid air cells: Partial left mastoid effusion. IMPRESSION: No acute abnormality.
[2020-01-09 04:00] VITALS: BP 132/89
--- NOTE | 2020-01-09 07:00 | NUR ---
NURSE NOTES:Handoff received from AMARILYS Schaffer. Patient received awake and alert and able to make needs known, patient denies pain at this time. Patient IV site is clean dry and intact, saline locked. Bed in the low and locked position, call light within reach, will continue to monitor patient.
--- NOTE | 2020-01-09 07:28 | NUR ---
HAND-OFF: Report given to Gigi Betancur RN. Pt in stable condition and plan of care endorsed.
[2020-01-09 08:00] VITALS: BP 147/87
[2020-01-09] MEDS: Multivitamin w/Minerals tab ORAL SCH (08:53)
[2020-01-09] MEDS: Thiamine 100mg tab ORAL SCH (08:53)
[2020-01-09 08:55] LABS: BASOPHILS % (AUTO) 0.9 % (0.0-2.0); EOSINOPHILS % (AUTO) 1.3 % (0.0-3.0); HEMATOCRIT 49.5 % (42.0-52.0); HEMOGLOBIN 15.7 G/DL (14.2-18.0); LYMPHOCYTES % (AUTO) 18.4 % (20.0-45.0); MEAN CORPUSCULAR VOLUME 98 FL (80-99); MONOCYTES % (AUTO) 5.4 % (1.0-10.0); PLATELET COUNT 448 K/UL (150-450); RED BLOOD COUNT 5.04 M/UL (4.70-6.10); RED CELL DISTRIBUTION WIDTH 12.9 % (11.6-14.8); WHITE BLOOD COUNT 10.4 K/UL (4.8-10.8)
[2020-01-09] MEDS: Heparin 5000 units/ml inj SUBQ SCH ×2 (08:55→20:50)
--- NOTE | 2020-01-09 09:00 | NUR ---
NURSE NOTES:Side rails padded.
[2020-01-09 09:59] LABS: ALANINE AMINOTRANSFERASE 52 U/L (12-78); ALBUMIN 3.3 G/DL (3.4-5.0); ALBUMIN/GLOBULIN RATIO 0.8 (1.0-2.7); ALKALINE PHOSPHATASE 56 U/L (46-116); ANION GAP 14 mmol/L (5-15); ASPARTATE AMINO TRANSFERASE 36 U/L (15-37); BILIRUBIN,TOTAL 0.4 MG/DL (0.2-1.0); BLOOD UREA NITROGEN 9 mg/dL (7-18); CALCIUM 7.7 MG/DL (8.5-10.1); CARBON DIOXIDE 21 MMOL/L (21-32); CHLORIDE 104 MMOL/L (98-107); POTASSIUM 4.2 MMOL/L (3.5-5.1); SODIUM 139 MMOL/L (136-145)
[2020-01-09 12:00] VITALS: BP 130/83
[2020-01-09 16:00] VITALS: BP 142/92
--- NOTE | 2020-01-09 17:10 | Pulmonology Progress Note ---
Subjective ROS Limited/Unobtainable: No Allergies: Coded Allergies: PENICILLINS (Unverified Allergy, Unknown, 01/08/20) Uncoded Allergies: PENICILLIN (Allergy, Unknown, 01/15/19) Objective Last 24 Hour Vital Signs Date Time Temp Pulse Resp B/P (MAP) Pulse Ox O2 Delivery O2 Flow Rate FiO2 01/09/20 16:00 97.7 87 20 142/92 (109) 96 01/09/20 16:00 83 01/09/20 12:00 99.9 89 18 130/83 (99) 96 01/09/20 12:00 82 01/09/20 08:45 Room Air 01/09/20 08:00 97.9 81 19 147/87 (107) 96 01/09/20 08:00 93 01/09/20 04:00 97.7 65 22 132/89 (103) 95 01/09/20 04:00 92 01/09/20 02:15 Room Air 01/09/20 00:00 97.7 100 22 125/84 (98) 94 01/09/20 00:00 96 01/08/20 21:30 97.7 102 22 128/92 (104) 95 01/08/20 20:45 98.2 100 19 105/75 96 Room Air 01/08/20 19:12 101 21 110/77 94 Room Air 01/08/20 17:35 105 20 Room Air 01/08/20 17:35 98.4 104 20 124/74 98 Room Air 01/08/20 17:13 98.1 120 20 127/73 (91) 99 Room Air Intake and Output 01/08/20 01/09/20 19:00 07:00 Intake Total 1056 ml 1050 ml Output Total 1200 ml Balance 1056 ml -150 ml Intake Oral 800 ml IV Total 1056 ml 250 ml Output Urine Total 1200 ml # Voids 1 Laboratory Tests 01/08/20 17:20: White Blood Count 6.9, Red Blood Count 5.34, Hemoglobin 16.8, Hematocrit 51.3, Mean Corpuscular Volume 96, Mean Corpuscular Hemoglobin 31.5H, Mean Corpuscular Hemoglobin Concent 32.9, Red Cell Distribution Width 13.3, Platelet Count 510H, Mean Platelet Volume 5.7L, Neutrophils (%) (Auto) 49.4, Lymphocytes (%) (Auto) 41.6, Monocytes (%) (Auto) 5.5, Eosinophils (%) (Auto) 2.4, Basophils (%) (Auto ) 1.2, Prothrombin Time 10.7, Prothromb Time International Ratio 1.0, Activated Partial Thromboplast Time 27, Sodium Level 140, Potassium Level 3.0L, Chloride Level 102, Carbon Dioxide Level 20L, Anion Gap 18H, Blood Urea Nitrogen 6L, Creatinine 0.9, Estimat Glomerular Filtration Rate > 60, Glucose Level 131H, Calcium Level 8.1L, Magnesium Level 2.0, Total Bilirubin 0.2, Aspartate Amino Transf (AST/SGOT) 38H, Alanine Aminotransferase (ALT/SGPT) 56, Alkaline Phosphatase 61, Troponin I 0.002, Total Protein 8.0, Albumin 3.5, Globulin 4.5, Albumin/Globulin Ratio 0.8L, Lipase 138 01/08/20 18:26: Lactic Acid Level 2.00 01/08/20 18:27: Urine Color Pale yellow, Urine Appearance Clear, Urine pH 5, Urine Specific [place] 1.010, Urine Protein Negative, Urine Glucose (UA) Negative, Urine Ketones Negative, Urine Blood Negative, Urine Nitrite Negative, Urine Bilirubin Negative, Urine Urobilinogen Normal, Urine Leukocyte Esterase Negative 01/08/20 18:29: Venous Blood pH 7.372, Venous Blood Partial Pressure CO2 27.0, Venous Blood Partial Pressure O2 104.6, Venous Blood HCO3 15.3, Venous Blood Total Carbon Dioxide 27.0, Venous Blood Base Excess -7.9, Venous Blood Carboxyhemoglobin 0.0L , Methemoglobin 0.5 01/09/20 07:05: White Blood Count 10.4#, Red Blood Count 5.04, Hemoglobin 15.7, Hematocrit 49.5 , Mean Corpuscular Volume 98, Mean Corpuscular Hemoglobin 31.2H, Mean Corpuscular Hemoglobin Concent 31.8L, Red Cell Distribution Width 12.9, Platelet Count 448, Mean Platelet Volume 5.5L, Neutrophils (%) (Auto) 74.0, Lymphocytes (%) (Auto) 18.4L, Monocytes (%) (Auto) 5.4, Eosinophils (%) (Auto) 1.3, Basophils (%) (Auto) 0.9, Sodium Level 139, Potassium Level 4.2, Chloride Level 104, Carbon Dioxide Level 21, Anion Gap 14, Blood Urea Nitrogen 9, Creatinine 1.0, Estimat Glomerular Filtration Rate > 60, Glucose Level 101, Calcium Level 7.7L, Magnesium Level 2.3, Total Bilirubin 0.4, Aspartate Amino Transf (AST/SGOT) 36, Alanine Aminotransferase (ALT/SGPT) 52, Alkaline Phosphatase 56, Total Protein 7.4, Albumin 3.3L, Globulin 4.1, Albumin/Globulin Ratio 0.8L Current Medications Medications (Trade) Dose Ordered Sig/Selene Route PRN Reason Start Time Stop Time Status Last Admin Dose Admin Acetaminophen (Tylenol) 500 mg Q6H PRN ORAL Mild Pain (1-3) or temp>100.4 01/08/20 22:00 02/07/20 21:59 Heparin Sodium (Porcine) (Heparin 5000 units/ml) 5,000 units EVERY 12 HOURS SUBQ 01/09/20 09:00 02/23/20 08:59 01/09/20 08:55 Levofloxacin 150 ml @ 100 mls/hr Q24H IVPB 01/08/20 23:00 01/15/20 22:59 01/08/20 23:55 Lorazepam (Ativan 2mg/ml 1ml) 1 mg Q2H PRN IV For Anxiety/ Agitation 01/08/20 22:00 01/15/20 21:59 Metronidazole 100 ml @ 100 mls/hr Q8H IVPB 01/09/20 00:00 01/16/20 00:00 01/09/20 16:14 Multivitamins Therapeutic (Therapeutic Multivitamin) 1 ea DAILY ORAL 01/09/20 09:00 02/08/20 08:59 01/09/20 08:53 Ondansetron HCl (Zofran) 4 mg Q6H PRN IVP Nausea & Vomiting 01/08/20 22:00 02/07/20 21:59 Pantoprazole (Protonix) 40 mg DAILY ORAL 01/09/20 09:00 02/08/20 08:59 01/09/20 08:53 Thiamine HCl (Vitamin B1) 100 mg DAILY ORAL 01/09/20 09:00 02/08/20 08:59 01/09/20 08:53 Assessment/Plan Assessment/Plan Progress Note HPI Patient is a 49-year-old man with past medical history of alcohol abuse admitted for with possible alcohol withdrawal, family concern about amount he is drinking. He admits to drinking 12 beers a day as well as drinking tequila. He states his last drink was earlier this morning where he drank some tequila. He feels anxious and has palpitations. He states that he feels a little shaky. He denies any seizure-like activity. Patient also states that he fell yesterday. He states that he fell because he was drinking and hit his head. Patient denies any chest pain or shortness of breath. He denies any focal weakness. Allergies: Coded Allergies: PENICILLINS (Unverified Allergy, Unknown, 01/08/20) Uncoded Allergies: PENICILLIN (Allergy, Unknown, 01/15/19) Physical Exam Vital Signs Noted General Appearance: no apparent distress, alert, GCS 15, non-toxic Head: normocephalic, atraumatic Eyes: bilateral eye normal inspection, bilateral eye PERRL ENT: hearing grossly normal, normal pharynx, normal voice, dry mucus membranes Neck: full range of motion, supple/symm/no masses/no LN Respiratory: chest non-tender, lungs clear, normal breath sounds, speaking full sentences Cardiovascular: tachycardia, HS1, HS2 normal, RRR Gastrointestinal: normal bowel sounds, non tender, soft, non-distended, no guarding, no rebound, no CVA tenderness Musculoskeletal: normal inspection, normal range of motion 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6-14.8) Platelet Count 510 K/UL (150-450) H Mean Platelet Volume 5.7 FL (6.5-10.1) L Neutrophils (%) (Auto) 49.4 % (45.0-75.0) Lymphocytes (%) (Auto) 41.6 % (20.0-45.0) Monocytes (%) (Auto) 5.5 % (1.0-10.0) Eosinophils (%) (Auto) 2.4 % (0.0-3.0) Basophils (%) (Auto) 1.2 % (0.0-2.0) Prothrombin Time 10.7 SEC (9.30-11.50) Prothrombin Time INR 1.0 (0.9-1.1) Activated Partial Thromboplast Time 27 SEC (23-33) Sodium Level 140 MMOL/L (136-145) Potassium Level 3.0 MMOL/L (3.5-5.1) L Chloride Level 102 MMOL/L (98-107) Carbon Dioxide Level 20 MMOL/L (21-32) L Anion Gap 18 mmol/L (5-15) H Blood Urea Nitrogen 6 mg/dL (7-18) L Creatinine 0.9 MG/DL (0.55-1.30) Estimated Glomerular Filtration Rate > 60 mL/min (>60) Glucose Level 131 MG/DL (74-106) H Calcium Level 8.1 MG/DL (8.5-10.1) L Magnesium Level 2.0 MG/DL (1.8-2.4) Total Bilirubin 0.2 MG/DL (0.2-1.0) Aspartate Amino Transferase (AST) 38 U/L (15-37) H Alanine Aminotransferase (ALT) 56 U/L (12-78) Alkaline Phosphatase 61 U/L (46-116) Troponin I 0.002 ng/mL (0.000-0.056) Total Protein 8.0 G/DL (6.4-8.2) Albumin 3.5 G/DL (3.4-5.0) Globulin 4.5 g/dL Albumin/Globulin Ratio 0.8 (1.0-2.7) L Lipase 138 U/L (73-393) Venous Blood pH Pending Venous Blood Partial Pressure CO2 Pending Venous Blood Partial Pressure O2 Pending Venous Blood HCO3 Pending Venous Blood Total Carbon Dioxide Pending Venous Blood Base Excess Pending Venous Blood Carboxyhemoglobin Pending Methemoglobin Pending EKG: sinus tachycardiac, no acute changes Rhythm: no PVC's, no ectopy, other - sinus tachycardia AXR: no soft tissue swelling, nonspecific bowel gas, no sbo Impression: No acute disease CXR: R Infrahilar atelectasis vs opacity Koffi Smith MD Jan 09, 2020 17:09
--- NOTE | 2020-01-09 19:20 | NUR ---
NURSE NOTES: Received report from Gigi Betancur RN. Pt is in stable condition, denies pain at this time. Will continue plan of care and close monitoring.
--- NOTE | 2020-01-09 19:25 | NUR ---
HAND-OFF: Report given to Jackie baeza RN. .
[2020-01-09 20:00] VITALS: BP 147/96
[2020-01-09] MEDS ORDERED: LORazepam 1mg tab ORAL PRN (22:00)
[2020-01-09] MEDS ORDERED: LORazepam 0.5mg tab ORAL PRN (22:00)
[2020-01-10] VITALS: BP 132/86
--- NOTE | 2020-01-10 00:15 | Consultation ---
DATE OF CONSULTATION: 01/09/2020 CONSULTING PHYSICIAN: Rafi Cox MD. HISTORY OF PRESENT ILLNESS: This is a 49-year-old man with a history of alcohol abuse who has been admitted to the hospital due to alcohol withdrawal. Patient is drinking 12 packs of beers on a daily basis as well as Tequila. Patient is having anxiety, palpitation. Patient has not been taking any Ativan for his withdrawal symptoms. He is on folate and thiamine. He is denying any depressive symptoms. No suicidal ideation. PAST PSYCHIATRIC HISTORY: History of depression and anxiety. No suicidal attempt. No psychiatric hospitalization. PAST MEDICAL HISTORY: None known. ALLERGIES: No known drug allergies. SUBSTANCE ABUSE HISTORY: Alcohol on a regular basis. MENTAL STATUS EXAMINATION: Alert, oriented times self, place, situation. Mood is anxious. Affect is constricted, congruent with mood. Thought process is concrete. Thought content, no suicidal or homicidal ideation. Cognition is intact. Insight and judgment is fair. ASSESSMENT: [place] I Alcohol dependence, alcohol withdrawal. [place] II Deferred. [place] III As above. [place] IV Low. [place] V 50. PLAN: 1. Change the IV Ativan to p.o. 2. Folate and thiamine. 3. Patient will benefit from inpatient substance abuse/alcohol rehabilitation. 4. Patient is not an imminent danger to self or others. Rafi Cox M.D. DR: ANGELIKA JOB#: [id number] CC:
[2020-01-10 04:00] VITALS: BP 133/88
--- NOTE | 2020-01-10 07:03 | NUR ---
HAND-OFF: Report given to Alyse Jacob RN. Pt is in stable condition. Plan of care endorsed.
[2020-01-10 07:29] LABS: BASOPHILS % (AUTO) 0.8 % (0.0-2.0); EOSINOPHILS % (AUTO) 2.2 % (0.0-3.0); HEMATOCRIT 49.5 % (42.0-52.0); HEMOGLOBIN 15.7 G/DL (14.2-18.0); MEAN CORPUSCULAR VOLUME 99 FL (80-99); MONOCYTES % (AUTO) 6.2 % (1.0-10.0); NEUTROPHILS % (AUTO) 57.7 % (45.0-75.0); PLATELET COUNT 389 K/UL (150-450); RED BLOOD COUNT 5.02 M/UL (4.70-6.10); RED CELL DISTRIBUTION WIDTH 12.9 % (11.6-14.8)
[2020-01-10 07:45] LABS: ALANINE AMINOTRANSFERASE 32 U/L (12-78); ALBUMIN 3.2 G/DL (3.4-5.0); ALBUMIN/GLOBULIN RATIO 0.8 (1.0-2.7); ALKALINE PHOSPHATASE 71 U/L (46-116); ANION GAP 9 mmol/L (5-15); ASPARTATE AMINO TRANSFERASE 31 U/L (15-37); BILIRUBIN,TOTAL 0.9 MG/DL (0.2-1.0); BLOOD UREA NITROGEN 5 mg/dL (7-18); CARBON DIOXIDE 26 MMOL/L (21-32); CHLORIDE 102 MMOL/L (98-107); CREATININE 0.9 MG/DL (0.55-1.30); POTASSIUM 3.7 MMOL/L (3.5-5.1); SODIUM 137 MMOL/L (136-145)
--- NOTE | 2020-01-10 07:53 | NUR ---
NURSE NOTES: Patient received from Amaya PANDA. Patient stable AOx4 with no complaints and no s/sx of distress or pain. RR even and unlabored on RA. Side rails upx2, call light within reach, bed low and locked.
[2020-01-10 08:00] VITALS: BP 157/91
--- NOTE | 2020-01-10 08:17 | General Progress Note ---
Assessment/Plan Assessment/Plan: Impression: Alcoholic withdrawal,ketoacidosis Hypokalemia Possible Pneumonia Plan IV Antibiotics recheck CXR Thiamine IV fluids, banana bag PRN Ativan Monitor labs psych follow up O2 PRN Subjective Allergies: Coded Allergies: PENICILLINS (Unverified Allergy, Unknown, 01/08/20) Uncoded Allergies: PENICILLIN (Allergy, Unknown, 01/15/19) Subjective care noted and reviewed no distress Objective Last 24 Hour Vital Signs Date Time Temp Pulse Resp B/P (MAP) Pulse Ox O2 Delivery O2 Flow Rate FiO2 01/10/20 04:00 78 01/10/20 04:00 98.5 83 20 133/88 (103) 96 01/10/20 00:00 99.0 87 20 132/86 (101) 97 01/09/20 23:59 84 01/09/20 21:00 Room Air 01/09/20 20:00 80 01/09/20 20:00 98.7 92 20 147/96 (113) 96 01/09/20 16:00 97.7 87 20 142/92 (109) 96 01/09/20 16:00 83 01/09/20 12:00 99.9 89 18 130/83 (99) 96 01/09/20 12:00 82 01/09/20 08:45 Room Air Intake and Output 01/09/20 01/10/20 19:00 07:00 Intake Total 140 ml 300 ml Output Total 1200 ml Balance -1060 ml 300 ml Intake Oral 140 ml 300 ml Output Urine Total 1200 ml # Voids 3 3 Laboratory Tests 01/10/20 05:45: White Blood Count 7.0, Red Blood Count 5.02, Hemoglobin 15.7, Hematocrit 49.5, Mean Corpuscular Volume 99, Mean Corpuscular Hemoglobin 31.3H, Mean Corpuscular Hemoglobin Concent 31.8L, Red Cell Distribution Width 12.9, Platelet Count 389, Mean Platelet Volume 6.0L, Neutrophils (%) (Auto) 57.7, Lymphocytes (%) (Auto) 33.0, Monocytes (%) (Auto) 6.2, Eosinophils (%) (Auto) 2.2, Basophils (%) (Auto ) 0.8, Sodium Level 137, Potassium Level 3.7, Chloride Level 102, Carbon Dioxide Level 26, Anion Gap 9, Blood Urea Nitrogen 5L, Creatinine 0.9, Estimat Glomerular Filtration Rate > 60, Glucose Level 99, Calcium Level 8.0L, Total Bilirubin 0.9, Aspartate Amino Transf (AST/SGOT) 31, Alanine Aminotransferase ( ALT/SGPT) 32, Alkaline Phosphatase 71, Total Protein 7.2, Albumin 3.2L, Globulin 4.0, Albumin/Globulin Ratio 0.8L Height (Feet): 5 Height (Inches): 8.00 Weight (Pounds): 170 Objective General Appearance: no apparent distress, alert Head: normocephalic, atraumatic Respiratory: chest non-tender, lungs clear, normal breath sounds Cardiovascular: HS1, HS2 normal, RRR Gastrointestinal: normal bowel sounds, non tender, soft, non-distended, Musculoskeletal: normal inspection, normal range of motion Neurologic: mild tremors Dorian Tucker MD Jan 10, 2020 08:16
[2020-01-10] MEDS: Heparin 5000 units/ml inj SUBQ SCH (08:23)
[2020-01-10] MEDS: Multivitamin w/Minerals tab ORAL SCH (08:24)
[2020-01-10] MEDS: Thiamine 100mg tab ORAL SCH (08:25)
--- NOTE | 2020-01-10 08:30 | NUR ---
NURSE NOTES: Per patient, he does not drink on a daily basis. He recently lost his mother, father and sibling and had just gone on a 3 day drinking binge because he felt depressed.
[2020-01-10 12:00] VITALS: BP 140/81
--- NOTE | 2020-01-10 12:07 | NUR ---
CASE MANAGEMENT:REVIEW 49 YR OLD MALE BIBA FROM HOME CC: ALCOHOL INTOXICATION SI; alcoholic ketoacidosis ALCOHOL WITHDRAWAL. HYPOKALEMIA 98.1 120 20 127/73 99% ON RA K-3.0 CO2-20 GLUCOSE+131 IS: 1L NS BOLUS IV KCL PO KCL IV ATIVAN IV BANANA BAG CT HEAD VENOUS DUPLEX : TO TELEMETRY 01/09/20 ALCOHOLIC KETOACIDOSIS ALCOHOL WITHDRAWAL. HYPOKALEMIA 98.1 120 20 127/73 99% ON RA K-3.0 CO2-20 GLUCOSE+131 IS: IV FLAGYL Q8HRS IV LEVAQUIN Q24 THIAMINE PO QD MVI PO QD HEPARIN SQ Q12 PROTONIX PO QD ATIVAN PO Q6HRS PRN : TO TELEMETRY PLAN: CONTINUOUS CARDIAC MONITORING 01/10/20 DISCHARGE HOME
--- NOTE | 2020-01-10 13:00 | NUR ---
NURSE NOTES: Patient discharged. All belongings with patient including wallet, gold chain and cell phone. Discharge paperwork given with discharge instructions. No questions at this time. threat monitoring analyst and IV discontinued. Patient walked down to front of hospital to private vehicle. Addendum: 01/10/20 at 1506 by ÓSCAR DIAZ RN Patient urged to seek counseling as patient stated that he was grieving due to loss of mother, father and sibling which prompted his 3 day binge drinking. Patient also educated that drinking is not a healthy coping mechanism as it can lead to alcohol addiction and health issues. Patient verbalized understanding and stated he will follow up with his primary care physician.
--- NOTE | 2020-01-11 14:23 | Discharge Summary ---
Discharge Summary Discharge Summary _ DATE OF ADMISSION: 01/08/2020 DATE OF DISCHARGE: 01/10/2020 DISCHARGED BY: Dr. Tucker REASON FOR ADMISSION: 49 years old male with past medical history of alcohol abuse, was brought by paramedics for evaluation. Family called paramedics , because patient was drinking daily, and they were concerned about his nutritional status. Patient admitted to drinking 12 beers a day as well as drinking tequila. Last drink was earlier that morning , when he drank some tequila. Patient reported being feeling anxious , with palpitations , shaky and tremulous. He denied seizure-like activities. Patient reported that he fell the day prior, because he was drunk and hit his head. No chest pain or shortness of breath. No any focal focal weakness . Upon evaluation patient was tachycardic with heart rate 120 , otherwise vital signs were stable. EKG revealed sinus tachycardia, no acute ischemic changes. Chest x-ray revealed atelectasis versus airspace opacity in the right infrahilar region. Laboratory work-up revealed no leukocytosis ,stable hemoglobin, hematocrit , platelet count 510. Potassium 3.0. Anion gap 18. Glucose 131. Lactic acid 2.0. Magnesium 2.0. AST 38 , ALT 56. Troponin 0.002 Albumin 3.5. INR 1.0 ABG on room air was stable . Urinalysis revealed no evidence of urinary tract infection. CT of the head revealed no acute intracranial pathology. Patient subsequently admitted for further management. CONSULTANTS: psychiatrist [facility]: Patient admitted to telemetry floor . Patient provided n IV fluids with multivitamin , magnesium and folate acid / banana bag. Thiamine provided. Potassium was replaced. Anxiolytic were on board as needed . CIWA protocol initiated . Seizure precautions maintained. DVT and GI prophylaxis provided. Patient was on empiric antibiotics. Patient slowly started on diet. Antiemetic were on board as needed. LFT and lipase remained stable. Patient was able to tolerate diet. Psychiatrist seen and evaluated patient. Patient had alcohol dependency per psychiatrist. Ativan was changed to oral. Psychiatrist recommended inpatient substance abuse/alcohol rehabilitation. Patient was not at imminent danger to self or others. Patient clinically stabilized and was ready for discharge. FINAL DIAGNOSES: Alcohol dependency Alcohol withdrawal ketoacidosis Hypokalemia Possible pneumonia DISCHARGE MEDICATIONS: See Medication Reconciliation list. DISCHARGE INSTRUCTIONS: Patient was discharged home . Follow-up with a primary care provider in 1 week.. Patient was strongly advised on alcohol cessation. I have been assigned to dictate discharge summary for this account. I was not involved in the patient's management. Malka Quezada NP Jan 11, 2020 14:23
== END 2020-01-10 12:50 | disposition home or self-care (01) | DRG 775 ==
LOC: EDBD 17:16 → EMR 17:30 → 2E 18:36 → EDBEDREQ 20:00 → 2E 21:16
DX: F10.239 Alcohol dependence with withdrawal, unspecified (principal); J18.9 Pneumonia, unspecified organism; E87.6 Hypokalemia; E87.2 Acidosis; Z88.0 Allergy status to penicillin; Z91.81 History of falling
CPT/HCPCS: 36415; 70450; 71045; 74018; 80053; 81003; 82803; 83605; 83690; 83735; 84484; 85025; 85610; 85730; 93005; 96361; 96365; 96367; 96376; 99285; J7030; J8499